=== PATIENT | female | born 1975 | race Caucasian/White ===

== ENCOUNTER 2023-07-31 18:12 | Emergency (ER) | payer BC, OTHER ==
[~2023-07-31] VITALS: Ht 165.1 cm; Wt 65.8 kg
[2023-07-31 18:28] VITALS: BP_SYST 173; PULSE 62; RESP 16; TEMP 97.8; O2SAT 99
[2023-07-31 20:20] LABS: BILIRUBIN,URINE NEGATIVE (NEGATIVE); BLOOD, URINE 3+ (NEGATIVE); COLOR,URINE YELLOW (YELLOW); GLUCOSE,URINE NEGATIVE (NEGATIVE); KETONES,URINE NEGATIVE (NEGATIVE); LEUKOCYTE ESTERASE ,URINE NEGATIVE (NEGATIVE); NITRITE, URINE NEGATIVE (NEGATIVE); PROTEIN URINE NEGATIVE (NEGATIVE); UROBILINOGEN,URINE 0.2 (0.2-1.0)
[2023-07-31 20:21] LABS: CLARITY/URINE CLOUDY (CLEAR)
[2023-07-31 20:22] LABS: BASOPHILS % (AUTO) 0.1 % (0.0-2.0); EOSINOPHILS % (AUTO) 0.3 % (0.0-4.0); HEMATOCRIT 36.6 % (36-48); HEMOGLOBIN 12.3 g/dL (12.0-16.0); LYMPHOCYTES # (AUTO) 1.8 K/uL (1.0-5.5); LYMPHOCYTES % (AUTO) 17.7 % (20.5-51.5); MEAN CORPUSCULAR HEMOGLOBIN 29 pg (27-31); MEAN CORPUSCULAR HGB CONC 34 % (32-36); MEAN CORPUSCULAR VOLUME 85 fL (79.0-98.0); MONOCYTES # (AUTO) 0.7 K/uL (0.0-1.0); MONOCYTES % (AUTO) 7.3 % (1.7-9.3); NEUTROPHILS # (AUTO) 7.6 K/uL (1.8-7.7); NEUTROPHILS % (AUTO) 74.6 % (40.0-70.0); PLATELET COUNT (AUTO) 172 K/uL (130-430); RED BLOOD CELL COUNT(AUTO) 4.31 MIL/uL (4.2-6.2); WHITE BLOOD COUNT (AUTO) 10.1 K/uL (4.8-10.8)
[2023-07-31 20:34] LABS: PROTHROMBIN TIME 10.6 SECS (9.5-12.5)
[2023-07-31 20:35] LABS: ALBUMIN 3.5 g/dL (3.4-4.8); BILIRUBIN,DIRECT 0.1 mg/dL (0.0-0.3); CALCIUM 9.6 mg/dL (8.4-11.0); CREATININE 0.75 mg/dL (0.55-1.30); POTASSIUM 3.7 mmol/L (3.5-5.1); TOTAL BILIRUBIN 0.3 mg/dL (0.0-1.0); TOTAL PROTEIN, SERUM 7.1 g/dL (6.4-8.3)
[2023-07-31 20:41] LABS: BACTERIA,URINE FEW /HPF (None Seen); WBC,URINE 0-3 /HPF (0-3)
[2023-07-31] MEDS ORDERED: HYDR-3917 PO (21:56)
[2023-07-31] MEDS ORDERED: IBUP-1969 PO (21:56)
== END 2023-07-31 22:00 | disposition home or self-care (01) ==
LOC: SED 18:12
DX: N23 Unspecified renal colic (principal); R03.0 Elevated blood-pressure reading, without diagnosis of hypertension; Z88.0 Allergy status to penicillin
CPT/HCPCS: 36415; 80048; 80076; 81000; 81001; 81015; 81025; 85025; 85610; 85730; 99284